=== PATIENT | female | born 1955 | race Caucasian/White ===

== ENCOUNTER 2021-07-11 12:30 | Inpatient (IN) | payer MEDICAID ==
[~2021-07-11] VITALS: Ht 170.2 cm; Wt 129.1 kg
[2021-08-03] MEDS ORDERED: LOSA1TAB3 PO (11:11)
[2021-08-03] MEDS ORDERED: SIMV-42 PO (11:11)
[2021-08-03] MEDS ORDERED: PANT40SU2 PO (11:11)
[2021-08-03 11:51] LABS: BASOPHILS # (AUTO) 0.1 X10'3 (0-0.2); EOSINOPHILS # (AUTO) 0.2 X10'3 (0-0.9); EOSINOPHILS % (AUTO) 2.4 % (0-6); LYMPHOCYTES # (AUTO) 1.9 X10'3 (1.1-4.8); LYMPHOCYTES % (AUTO) 25.7 % (21-51); MEAN CORPUSCULAR HEMOGLOBIN 30.1 PG (27.0-31.0); MEAN CORPUSCULAR HGB CONC 35.2 g/dL (33.0-36.5); MEAN CORPUSCULAR VOLUME 85.6 FL (78-98); MEAN PLATELET VOLUME 7.7 FL (7.4-10.4); MONOCYTES # (AUTO) 0.6 X10'3 (0-0.9); MONOCYTES % (AUTO) 8.9 % (2-12); NEUTROPHILS # (AUTO) 4.5 X10'3 (1.8-7.7); PRE OP HEMOGLOBIN 14.1 g/dL (12.0-16.0); PRE OP PLATELET COUNT 244 X10'3 (140-440); RED BLOOD COUNT 4.68 X10'6 (4.20-5.60); RED CELL DISTRIBUTION WIDTH 13.9 % (11.5-14.5)
[2021-08-03 12:04] LABS: ALBUMIN 3.7 G/DL (3.4-5.0); ALKALINE PHOSPHATASE 58 IU/L (46-116); BLOOD UREA NITROGEN 12 MG/DL (7-18); BUN/CREATININE RATIO 18.8 (6.6-38.0); CALCIUM 9.7 MG/DL (8.5-10.1); CHLORIDE 99 MMOL/L (99-107); CREATININE 0.64 MG/DL (0.40-0.90); PRE OP ALT 52 U/L (30-65); PRE OP ANION GAP 13 (8-16); PRE OP AST 47 U/L (10-37); PRE OP BILIRUB, TOTAL 0.4 MG/DL (0.0-1.0); PRE OP GLUCOSE 133 MG/DL (70-104); PRE OP POTASSIUM 3.5 MMOL/L (3.4-5.1); PRE OP SODIUM 140 MMOL/L (135-145); TOTAL CARBON DIOXIDE 27.9 MMOL/L (24-32); TOTAL PROTEIN 7.5 G/DL (6.4-8.2); eGFR > 90 ML/MIN
[2021-08-09] VITALS (22 sets, daily range): BP systolic 120–148; BP diastolic 58–101
[2021-08-09] MEDS ORDERED: ringers solution, lacted 1,000 ML IV SCH ×2 (05:00→13:25)
[2021-08-09] MEDS ORDERED: vancomycin 1,500 MG in NS 300ml IV soln IV ONE (05:30)
[2021-08-09] MEDS ORDERED: tranexamic acid 650mg tablet PO ONE (05:30)
[2021-08-09] MEDS ORDERED: ceFAZolin inj. 3,000 MG in normal saline 100ml IV soln 100 ML IV ONE (05:30)
[2021-08-09] MEDS ORDERED: famotidine 20mg tablet PO ONE (05:30)
[2021-08-09] MEDS ORDERED: losartan 50mg tablet PO ONE (05:30)
[2021-08-09] MEDS ORDERED: sevoflurane 250ml liquid IH ONE (08:00)
[2021-08-09] MEDS ORDERED: scopolamine 1mg/72 hr patch TD ONE (08:50)
[2021-08-09] MEDS ORDERED: ondansetron/PF 4mg/2ml inj IV ONE (11:15)
[2021-08-09] MEDS ORDERED: ROPIVAcaine 0.5% (5mg/ml) 30ml vial ONE ×2 (12:10→14:21)
[2021-08-09] MEDS ORDERED: fentaNYL/PF 50MCG/1 ML 2ML syringe ONE (12:31)
[2021-08-09] MEDS ORDERED: midazolam 1 mg/ML 2ml injection ONE (12:34)
[2021-08-09] MEDS ORDERED: propofol inj 20 ML IV ONE (12:35)
[2021-08-09] MEDS ORDERED: LIDOcaine 1%/PF 5ML 10 MG/ML VIAL ONE (12:35)
[2021-08-09] MEDS ORDERED: rocuronium 10mg/ml inj IV ONE ×2 (12:35→14:40)
[2021-08-09] MEDS ORDERED: ondansetron/PF 4mg/2ml inj IV PRN ×3 (13:25→15:05)
[2021-08-09] MEDS ORDERED: meperidine/PF 25mg/ml syringe IV PRN ×3 (13:25)
[2021-08-09] MEDS ORDERED: ROPIVAcaine 0.2%/PF PUMP/bolus 545 ML INTERSCALE SCH (13:25)
[2021-08-09] MEDS ORDERED: morphine 4 MG/ML inj SYRINge IV PRN (13:25)
[2021-08-09] MEDS ORDERED: ROPIVAcaine 0.2% (10 MG/5 ML) BOLUS INJECTION INTERSCALE PRN (13:25)
[2021-08-09] MEDS ORDERED: proCHLORperazine 10 MG/2 ml inj IV PRN (13:25)
[2021-08-09] MEDS ORDERED: morphine 2 MG/ML inj. syringe IV PRN (13:25)
[2021-08-09] MEDS ORDERED: ketorolac trometh. 30mg/ml inj. ONE (14:00)
[2021-08-09] MEDS ORDERED: dexamethasone sod phosphate 4mg/ml inj. ONE (14:21)
[2021-08-09] MEDS ORDERED: acetaminophen 1,000mg/100ml IV 100 ML IV ONE (14:22)
[2021-08-09] MEDS ORDERED: glycopyrrolate 0.2mg/ml inj ONE (14:33)
[2021-08-09] MEDS ORDERED: neostigmine methylsulfate 1 MG/ML 10ml vial ONE (14:33)
[2021-08-09] MEDS ORDERED: acetaminophen 325mg tablet PO PRN ×2 (14:55→15:05)
[2021-08-09] MEDS ORDERED: HYDROmorphone inj. 0.5 MG/0.5 ML DISP.SYRIN IV PRN ×2 (14:55→15:05)
[2021-08-09] MEDS ORDERED: magnesium hydroxide 30ml (MOM) UD suspension PO PRN ×2 (14:55→15:05)
[2021-08-09] MEDS ORDERED: diphenhydrAMINE 25mg capsule PO PRN ×4 (14:55→15:05)
[2021-08-09] MEDS ORDERED: HYDROmorphone 1 mg/ml syringe IV PRN ×2 (14:55→15:05)
[2021-08-09] MEDS ORDERED: bisacodyl 10mg suppository rectal RC PRN ×2 (14:55→15:05)
[2021-08-09] MEDS ORDERED: oxyCODONE IR 5mg (immed. release) tablet PO PRN ×4 (14:55→15:05)
--- NOTE | 2021-08-09 14:55 | NUR ---
PT ARRIVED TO RECOVERY ROOM VIA BED, ACCOMPANIED BY DR APONTE, ANESTHESIA-REPORT GIVEN. VSS, PT WAKING UP, DENIES PAIN, RIGHT SHOULDER WRAP IN PLACE WITH POWDER PAC AND ON-Q CATHETER, PULSE PRESENT WITH CSM-INTACT, FINGERS PINK AND WARM, SCDS ON, 18G PIV LEFT UE.
[2021-08-09] MEDS ORDERED: potassium cl 20mEq in 1/2 NS 1,000 ML IV SCH (15:05)
[2021-08-09] MEDS ORDERED: ceFAZolin/D5W- 1GM premix 50 ML IV SCH (16:00)
--- NOTE | 2021-08-09 16:35 | NUR ---
PT DOING WELL, VSS, ON-Q ATTACHED AND RUNNING AT 4ML/HR-PT EDUCATED ON USE, PAIN CONTROLLED, SHOULDER WRAP WITH ICE IN PLACE, DRSG-CDI, WITH SLING, ABLE TO MOVE FINGERS, CSM-INTACT, FINGERS-PINK WARM, +2 CAP REFILL, PULSES PRESENT, SCDS ON, PIV-LR RUNNING AT 100ML/HR, REPORT CALLED TO DAYRON BATISTA-ALL QUESTIONS ANSWERED, TAKEN TO ROOM [id number] IN ROOM WITH BELONGINGS, PRIMARY RN IN ROOM TO RECEIVE PT, BED LOW AND LOCKED, CALL LIGHT IN REACH.
[2021-08-09] MEDS: ceFAZolin/D5W- 1GM premix 50 ML IV SCH ×2 (17:03→23:47)
--- NOTE | 2021-08-09 18:28 | NUR ---
Problems reprioritized. Patient report given, questions answered & plan of care reviewed with Wei BATISTA.
[2021-08-09] MEDS ORDERED: vancomycin/NS 1 GM ADD-VANTAGE 250 ML IV SCH ×2 (20:00)
[2021-08-09] MEDS ORDERED: acetaminophen 325mg tablet PO SCH (20:00)
[2021-08-09] MEDS: HYDROchlorothiazide 12.5mg capsule PO SCH (20:05)
[2021-08-09] MEDS: losartan 50mg tablet PO SCH (20:05)
[2021-08-09] MEDS: acetaminophen 325mg tablet PO SCH (20:07)
[2021-08-09] MEDS ORDERED: sennosides 8.6mg tablet PO SCH ×2 (21:00)
[2021-08-09] MEDS ORDERED: atorvastatin 20mg tablet PO SCH (21:00)
[2021-08-09] MEDS: potassium cl 20mEq in 1/2 NS 1,000 ML IV SCH ×2 (23:47→23:48)
[2021-08-10] MEDS: acetaminophen 325mg tablet PO SCH ×2 (02:12→07:49)
--- NOTE | 2021-08-10 02:46 | NUR ---
PT'S PIV INFILTRATED. PT HAS COMPLETED ALL ABX AND TAKING PO WELL. PT REFUSED PIV RESTART . Addendum: 08/10/21 at 0250 by Sammy Corley RN Amended: Links added.
[2021-08-10 06:27] LABS: BASOPHILS % (AUTO) 0.2 % (0-1); EOSINOPHILS % (AUTO) 0 % (0-6); HEMATOCRIT 36.7 % (35.0-45.0); HEMOGLOBIN 12.7 g/dl (12.0-16.0); LYMPHOCYTES # (AUTO) 1.3 X10'3 (1.1-4.8); LYMPHOCYTES % (AUTO) 12.2 % (21-51); MEAN CORPUSCULAR HEMOGLOBIN 30.3 PG (27.0-31.0); MEAN CORPUSCULAR HGB CONC 34.6 g/dL (33.0-36.5); MEAN CORPUSCULAR VOLUME 87.6 FL (78-98); MONOCYTES # (AUTO) 0.9 X10'3 (0-0.9); MONOCYTES % (AUTO) 8.4 % (2-12); NEUTROPHILS # (AUTO) 8.6 X10'3 (1.8-7.7); NEUTROPHILS % (AUTO) 79.2 % (42-75); PLATELET COUNT 231 X10'3 (140-440); RED BLOOD COUNT 4.19 X10'6 (4.20-5.60); RED CELL DISTRIBUTION WIDTH 13.9 % (11.5-14.5); WHITE BLOOD COUNT 10.9 X10'3 (4.5-11.0)
--- NOTE | 2021-08-10 06:43 | NUR ---
Problems reprioritized. Patient report given, questions answered & plan of care reviewed with TEMO. Addendum: 08/10/21 at 0643 by Sammy Corley RN Amended: Links added.
[2021-08-10] MEDS: potassium cl 20mEq in 1/2 NS 1,000 ML IV SCH (06:55)
[2021-08-10 06:59] LABS: ANION GAP 14 (8-16); CHLORIDE 104 MMOL/L (99-107); POTASSIUM 3.7 MMOL/L (3.5-5.1); SODIUM 143 MMOL/L (135-145); TOTAL CARBON DIOXIDE 25.2 MMOL/L (24-32)
[2021-08-10 07:25] VITALS: BP 119/58
[2021-08-10] MEDS ORDERED: pantoprazole 40mg Tablet.DR PO SCH (07:30)
[2021-08-10] MEDS: HYDROchlorothiazide 12.5mg capsule PO SCH (07:45)
[2021-08-10 07:47] VITALS: BP_SYST 119
[2021-08-10] MEDS: losartan 50mg tablet PO SCH (07:47)
[2021-08-10] MEDS ORDERED: aspirin 325mg tablet PO SCH ×2 (08:30)
[2021-08-10] MEDS ORDERED: celeCOXIB 100mg capsule PO SCH ×2 (20:00)
[2021-08-11] MEDS ORDERED: acetaminophen 325mg tablet PO PRN ×2 (14:55→15:05)
== END 2021-08-10 12:07 | disposition home or self-care (01) | DRG 322 ==
LOC: PAS IN 08-09 08:14 → SUR 3N 08-09 16:45
PROVIDERS: ADMIT Orthopaedic Surgery; ATTEND Orthopaedic Surgery
PROC: 0LS30ZZ Reposition Right Upper Arm Tendon, Open Approach (ICD-10-PCS; 2021-08-09)
PROC: 3E0T3BZ Introduction of Anesthetic Agent into Peripheral Nerves and Plexi, Percutaneous Approach (ICD-10-PCS; 2021-08-09)
PROC: 0RRJ00Z Replacement of Right Shoulder Joint with Reverse Ball and Socket Synthetic Substitute, Open Approach (ICD-10-PCS; principal; 2021-08-09 12:48)
DX: M19.011 Primary osteoarthritis, right shoulder (principal); M65.811 Other synovitis and tenosynovitis, right shoulder; M75.101 Unspecified rotator cuff tear or rupture of right shoulder, not specified as traumatic; Z79.899 Other long term (current) drug therapy
CPT/HCPCS: 36415; 71045; 73020; 80051; 80053; 82948; 85025; 87081; 93005; 97110; 97161; 97530; A4618; A7000; C1776; G0378; J0131; J0690; J1100; J1885; J2250; J2405; J2704; J2710; J2795; J3010; J3370; J3480; J3490; J7040; J7120; U0003; U0005

== ENCOUNTER 2023-11-05 08:47 | Outpatient (CLI) | payer MEDICAID ==
[~2023-11-05 08:47] MED LIST: LOSA-420 PO; PANT40SU2 PO; SIMV-42 PO
== END 2023-11-05 23:59 | disposition home or self-care (01) ==
LOC: CARD DIAG 08:47
PROVIDERS: ATTEND Family Medicine
DX: I08.8 Other rheumatic multiple valve diseases (principal); R06.02 Shortness of breath
CPT/HCPCS: 93306

== ENCOUNTER 2023-11-14 08:07 | Outpatient (CLI) | payer MEDICAID | END 2023-11-14 23:59 | disposition home or self-care (01) | LOC: RT 08:07 | PROVIDERS: ATTEND Family Medicine | DX: R06.02 Shortness of breath (principal) | CPT/HCPCS: 94010; 94727; 94729 ==